=== PATIENT | female | born 1945 | race Caucasian/White ===

== ENCOUNTER 2021-03-04 20:42 | Inpatient (IN) | payer MEDICAID ==
[~2021-03-04] VITALS: Ht 167.6 cm; Wt 72.6 kg
[2021-03-04] MEDS: ENOXAPARIN SODIUM 40 MG/0.4 ML DISP.SYRIN SQ SCH (02:17)
--- NOTE | 2021-03-04 20:50 | NUR ---
PT BIBRA 102 FROM HOME C/O MIDSTERNAL C/P. GIVEN ASPIRIN 324 AND NITRO FANCY STITCHER. PT A/OX3. TOLERATING R/A WELL. CONNECTED PT TO POX AND TELE MONITOR. AMBULATORY. SAFETY MEASURES IN PLACE.
--- NOTE | 2021-03-04 21:00 | NUR ---
BLOOD COLLECTED AND SENT TO LAB
--- NOTE | 2021-03-04 21:12 | NUR ---
COVID SWAB SENT TO LAB
[2021-03-04 21:15] LABS: BASOPHILS % (AUTO) 0.1 % (0.0-2.0); HEMATOCRIT 35 % (33-45); HEMOGLOBIN 11.2 g/dL (11.5-14.8); LYMPHOCYTES # (AUTO) 2.6 K/uL (0.8-4.8); LYMPHOCYTES % (AUTO) 26.8 % (20.0-44.0); MEAN CORPUSCULAR HGB CONC 32 g/dl (31.0-36.0); MEAN CORPUSCULAR VOLUME 67 fL (82-100); MONOCYTES # (AUTO) 0.5 K/uL (0.1-1.30); MONOCYTES % (AUTO) 4.8 % (2.0-12.0); NEUTROPHILS # (AUTO) 6.4 K/uL (1.8-8.9); NEUTROPHILS % (AUTO) 67.3 % (43.0-81.0); PLATELET COUNT (AUTO) 147 K/uL (150-450); RED BLOOD CELL COUNT(AUTO) 5.16 MIL/uL (4.0-5.2); WHITE BLOOD COUNT (AUTO) 9.6 K/uL (4.3-11.0)
--- NOTE | 2021-03-04 21:20 | NUR ---
XRAY AT PT'S BEDSIDE
[2021-03-04 21:22] LABS: CALCIUM, SERUM 8.9 mg/dL (8.5-10.1); CARBON DIOXIDE 26 mmol/L (21-32); CHLORIDE 105 mmol/L (98-107); CREATININE 1.1 mg/dL (0.6-1.3); GLUCOSE 145 mg/dL (74-106); POTASSIUM 4.2 mmol/L (3.5-5.1); SODIUM SERUM 141 mmol/L (136-145); UREA NITROGEN, BLOOD 36 mg/dL (7-18)
[2021-03-04] MEDS ORDERED: ACETAMINOPHEN 325 MG TABLET PO PRN (23:00)
[2021-03-04] MEDS ORDERED: MORPHINE SULFATE INJ 2 MG/ML DISP.SYRIN IV PRN (23:00)
[2021-03-04] MEDS ORDERED: TEMAZEPAM 15 MG CAPSULE PO PRN (23:00)
[2021-03-04] MEDS ORDERED: IV NS 0.9% 1,000 ML IV PRN (23:00)
[2021-03-04] MEDS ORDERED: ALPRAZOLAM 0.25 MG TABLET PO PRN (23:00)
[2021-03-04] MEDS ORDERED: MAG HYDROX/AL HYDROX/SIMETH 30 ML UDC PO PRN (23:00)
[2021-03-04] MEDS ORDERED: MAGNESIUM HYDROXIDE 30 ML UDC PO PRN (23:00)
[2021-03-04] MEDS ORDERED: ONDANSETRON HCL/PF 4 MG/2 ML VIAL IVP PRN (23:00)
[2021-03-04] MEDS ORDERED: HYDROCODONE/APAP 5/325MG TABLET PO PRN (23:00)
[2021-03-04] MEDS ORDERED: Z GUARD REMEDY 2 OZ OINT TP PRN (23:00)
[2021-03-05] VITALS (7 sets, daily range): BP systolic 105–143; BP diastolic 43–65
--- NOTE | 2021-03-05 00:30 | NUR ---
called to 309-1
--- NOTE | 2021-03-05 01:05 | NUR ---
DEVELOPMENT ANALYST ADMITTING NOTES RECEIVED PATIENT VIA STRETCHER. A/OX3 -- CROATIAN SPEAKING ONLY. NO S/S OF APPARENT DISTRESS IN 2LPM OF OXYGEN VIA NC -- TOLERATING AND SATURATING AT 99%. DENIES CHEST PAIN AT THIS TIME. PATIENT AMBULATORY. IV NS RUNNING AT 75ML/HR. ID BAND IN PLACE, BELONGINGS SIGNED BY VINCENT AND Jennifer, TELE MONITOR READING SB/SR - 50'S-60'S. VS FOLLOWS: BP-143/64, P-54 AND WENT UP TO 64, RR-18, T- 96.9, WT- 160.4 LBS. WILL CONTINUE TO MONITOR PATIENT.
--- NOTE | 2021-03-05 01:13 | NUR ---
REPORT GIVEN TO LETA Jiménez RN AND PT TRANSFERRED VIA ACLS PROTOCOL TO 3W 309-1. ALL PT BELONGINGS WITH PT. VSS
--- NOTE | 2021-03-05 01:16 | NUR ---
LEFT VOICEMESSAGE TO JANNA (GRANDDAUGHTER) THAT PT TRANSFERRED TO 309-1
--- NOTE | 2021-03-05 02:18 | NUR ---
LOVENOX NON-ADMIN PATIENT PLT. 145. Addendum: 03/05/21 at 0309 by LETA BADILLO RN disregard this note. Lovenox given for DVT prophylaxis.
--- NOTE | 2021-03-05 02:40 | NUR ---
trying to communicate with patient -- called the [facility] to get some tamazight rough patcher and they could not find any at this time. tried calling granddaughter but not picking up as well and it go straight to voicemail. will try again later.
--- NOTE | 2021-03-05 02:53 | NUR ---
Tried calling Alis (son) which is the person to nofity and no answer. Left a voicemail instead.
[2021-03-05] MEDS: ENOXAPARIN SODIUM 40 MG/0.4 ML DISP.SYRIN SQ SCH (03:06)
--- NOTE | 2021-03-05 06:00 | NUR ---
MARRIAGE AND FAMILY TEACHER NOTE Was able to get a hold of a cooperer via [employer]. Per patient she does not have any chest pain and just wanting an cooperer. Per patient she does not have any advanced directives and wants to be Full code. Per patient she is not up-to-date with her Pneumonia and Flu shot and would like to get it. Per patient she confirmed that she does not have any allergies. Made charge nurse known that patient wants the vaccines and per jeannie Mata, to chart it-- will endorse this to am shift rn. Patient denies any concern at the moment.
--- NOTE | 2021-03-05 06:31 | NUR ---
ASSOCIATE MEDICAL DIRECTOR NOTE PATIENT IN BED WITH EYES CLOSED, EASY TO AROUSE. PATIENT A/OX4. NO S/S OF APPARENT DISTRESS TOLERATING 2LPM OF OXYGEN VIA NC. DENIES PAIN. TELE MONITOR READING SINUS BRADYCARDIA IN THE 50S. IV NS RUNNING AT 75CC/HR. ALL NEEDS ATTENDED. SAFETY KEPT IN PLACE THE WHOLE SHIFT. NO SIGNIFICANT CHANGE SINCE ADMISSION SHIFT. WILL ENDORSE CARE TO MORNING SHIFT RN.
[2021-03-05 06:34] LABS: BASOPHILS % (AUTO) 0.3 % (0.0-2.0); EOSINOPHILS % (AUTO) 1.3 % (0.0-6.0); HEMATOCRIT 33 % (33-45); HEMOGLOBIN 10.5 g/dL (11.5-14.8); LYMPHOCYTES % (AUTO) 22.3 % (20.0-44.0); MEAN CORPUSCULAR HGB CONC 32 g/dl (31.0-36.0); MEAN CORPUSCULAR VOLUME 67 fL (82-100); MONOCYTES # (AUTO) 0.4 K/uL (0.1-1.30); MONOCYTES % (AUTO) 4.3 % (2.0-12.0); NEUTROPHILS # (AUTO) 6.3 K/uL (1.8-8.9); NEUTROPHILS % (AUTO) 71.8 % (43.0-81.0); PLATELET COUNT (AUTO) 143 K/uL (150-450); RED BLOOD CELL COUNT(AUTO) 4.83 MIL/uL (4.0-5.2); WHITE BLOOD COUNT (AUTO) 8.8 K/uL (4.3-11.0)
[2021-03-05 07:02] LABS: CALCIUM, SERUM 8.6 mg/dL (8.5-10.1); CREATININE 0.9 mg/dL (0.6-1.3); MAGNESIUM 2.1 mg/dL (1.8-2.4); PHOSPHORUS 5.1 mg/dL (2.5-4.9); POTASSIUM 4.2 mmol/L (3.5-5.1)
[2021-03-05 07:13] LABS: THYROID STIMULATING HORMONE 44.706 uIU/mL (0.358-3.74)
[2021-03-05] MEDS ORDERED: PNEUMOCOCCAL 23-VAL P-SAC VAC 0.5 ML VIAL SQ ONE (07:30)
--- NOTE | 2021-03-05 07:55 | NUR ---
tele carcass trimmer: cardio consult seen and examined by dr. olmos with orders. orders acknowledged.
--- NOTE | 2021-03-05 08:15 | NUR ---
tele plastic press molder: notes last (son) notified and made aware re: ct angio procedure today. son translated to her mother and given consent. pt and son verbalized understanding. Addendum: 03/05/21 at 1345 by PAYAL QUINTERO BICYCLE FITTER asked son if pt had pneumococcal vaccination within 5 years and says he is not sure.
--- NOTE | 2021-03-05 08:20 | NUR ---
tele home health care case manager: md visit seen and examined by dr. donnelly with new orders. orders acknowledged. iv fluids stopped. will continue to monitor.
[2021-03-05] MEDS ORDERED: IV NS 0.9% 250 ML IV ONE (08:33)
[2021-03-05] MEDS ORDERED: CT SWABBABLE VALVE TRANS SET 1 EA INFUS.SET MC ONE (08:33)
[2021-03-05] MEDS ORDERED: NITROGLYCERIN 0.4 MG/TAB BOTTLE ONE (08:33)
[2021-03-05] MEDS ORDERED: IOHEXOL-350 100 ML VIAL IV ONE (08:33)
[2021-03-05] MEDS ORDERED: METOPROLOL TARTRATE INJ 5 MG/5 ML AMPUL ONE (08:33)
[2021-03-05] MEDS ORDERED: AMIO200T5 PO (08:55)
[2021-03-05] MEDS ORDERED: CLOP75TA15 PO (08:55)
[2021-03-05] MEDS ORDERED: ATOR40TA PO (08:55)
[2021-03-05] MEDS ORDERED: FURO-144 PO (09:00)
[2021-03-05] MEDS ORDERED: LEVO25TA7 PO (09:00)
[2021-03-05] MEDS ORDERED: NITROGLYCERIN 0.4 MG/TAB BOTTLE SL ONE (09:00)
[2021-03-05] MEDS: AMIODARONE HCL 200 MG TABLET PO SCH (09:00)
[2021-03-05] MEDS ORDERED: METOPROLOL TARTRATE INJ 5 MG/5 ML AMPUL IVP PRN (09:00)
--- NOTE | 2021-03-05 09:09 | NUR ---
CTA PROCEDURE WELL TOLERATED BY THE PT. V/S STABLE, KEPT RESTED AND COMFORTABLE. REPORT GIVEN TO GEORGE MOE FOR NIKITA.
--- NOTE | 2021-03-05 09:15 | NUR ---
tele fruit worker: notes pt back from ct angio at this time. instructed to call for assistance.
[2021-03-05] MEDS: ASPIRIN 81 MG TAB.CHEW PO SCH (09:30)
[2021-03-05] MEDS: FLUTICASONE/VILANTEROL 1 EACH BLST.W.DEV IH SCH (09:30)
[2021-03-05] MEDS: CLOPIDOGREL BISULFATE 75 MG TABLET PO SCH (09:30)
[2021-03-05] MEDS: PANTOPRAZOLE 40 MG TABLET.DR PO SCH (09:30)
[2021-03-05] MEDS: ALBUTEROL FS 2.5 MG/0.5 ML VIAL.NEB NEB SCH ×5 (09:34→23:57)
--- NOTE | 2021-03-05 11:00 | NUR ---
tele network services project manager: notes ct angio resulted. dr. donnelly notified and says he is aware and has spoken with dr. olmos (air conditioning engineer).
--- NOTE | 2021-03-05 14:17 | NUR ---
tele 911 telecommunicator: notes heydi (granddaughter) called and wants to talk to the doctor for updates. dr. donnelly notified and given pt's granddaughter's number.
--- NOTE | 2021-03-05 14:20 | NUR ---
tele pipe turner: notes dr. donnelly says that he called both son and granddaughter and no one picked up. per dr. donnelly, pt for d'c planning tomorrow.
--- NOTE | 2021-03-05 15:20 | NUR ---
tele chemical recovery operator: notes granddaughter called and informed me that she missed the doctor's call. informed her that labs still pending and pt for d'c planning tomorrow. transfer call to pt to tell her in kinyarwanda.
[2021-03-05] MEDS: APIXABAN 5 MG TABLET PO SCH ×2 (15:49→21:20)
[2021-03-05 16:53] LABS: FERRITIN 0 ng/mL (8-388)
--- NOTE | 2021-03-05 17:00 | NUR ---
tele lime vat tender: notes dinner served. hob elevated. instructed to call for assistance. will continue to monitor.
--- NOTE | 2021-03-05 17:23 | NUR ---
tele chart changer: notes urine collected via clean catch. called lab to picker tender specimen.
--- NOTE | 2021-03-05 19:24 | NUR ---
tele exercise instruct: notes pt sounds asleep. report given to [facility]) for continuity of care.
--- NOTE | 2021-03-05 20:00 | NUR ---
Patient is A&Ox4. VSS. SR on the monitor at this time. Patient reports that she feels well, no chest pain or SOB and she feels like the breathing treatments are helping her. Patient is Greenlandic speaking only so translation navid as needed. but, certified adaptive physical education specialist or family member for consents, decisions, coordinating clinical care, etc.
--- NOTE | 2021-03-05 21:45 | NUR ---
Able to get ahold of family member to double check if patient would like flu and PNA vaccine. Per family pt does not want or need any vaccines and she refuses. Family able to confirm through translation that patient feels good and "back to normal like she can go back home." Pt still denies CP or SOB. States that she only feels a little anxiety from having all these tests and would like a sleeping pill to get a good nights rest. Will admin and continue to monitor.
[2021-03-05] MEDS ORDERED: ATORVASTATIN 40 MG TABLET PO SCH (22:00)
[2021-03-06] VITALS: BP 121/55
[2021-03-06] MEDS: ALBUTEROL FS 2.5 MG/0.5 ML VIAL.NEB NEB SCH ×4 (03:39→15:07)
[2021-03-06 04:00] VITALS: BP 145/55
--- NOTE | 2021-03-06 06:12 | NUR ---
CHILD AND ADOLESCENT THERAPIST CLOSING NOTES Patient has been A&Ox4. VSS. Tolerating breathing treatments well. SB/SR on monitor 55-75bpm. No signs of distress. Patient denies pain or SOB. No overnight events. All needs attended to by staff.
[2021-03-06 07:21] LABS: BILIRUBIN,URINE NEGATIVE (NEGATIVE); COLOR,URINE YELLOW (YELLOW); LEUKOCYTE ESTERASE ,URINE NEGATIVE (NEGATIVE); NITRITE, URINE NEGATIVE (NEGATIVE); PH,URINE 5.5 (5.0-8.0); PROTEIN,URINE NEGATIVE (NEGATIVE); UGLUCOSE NEGATIVE (NEGATIVE); UROBILINOGEN,URINE 0.2 EU/dL (0.2)
--- NOTE | 2021-03-06 07:28 | NUR ---
TELE/RN OPENING NOTES RECEIVED PATIENT ON BED SLEEPING EASILY AWAKEN BY NAME AND LIGHT TOUCH. PATIENT IS ON 2L OXYGEN VIA NASAL CANNULA AT THIS TIME. PATIENT IS ON AND OFF 2L OXYGEN PER NIGHT RN SATURATING WELL. PATIENT IN NO APPARENT RESPIRATORY DISTRESS NOTED. NO SIGN AND SYMPTOM OF PAIN NOTED AT THIS TIME. TELE MONITOR READING SINUS JAIMEE 49 BPM. WILL CONTINUE TO MONITOR.
[2021-03-06] MEDS: PANTOPRAZOLE 40 MG TABLET.DR PO SCH (07:38)
[2021-03-06 08:00] VITALS: BP 101/50
[2021-03-06] MEDS: FLUTICASONE/VILANTEROL 1 EACH BLST.W.DEV IH SCH (08:39)
[2021-03-06] MEDS: CLOPIDOGREL BISULFATE 75 MG TABLET PO SCH (08:39)
[2021-03-06] MEDS: ASPIRIN 81 MG TAB.CHEW PO SCH (08:39)
[2021-03-06] MEDS: APIXABAN 5 MG TABLET PO SCH (08:44)
[2021-03-06] MEDS: AMIODARONE HCL 200 MG TABLET PO SCH (09:00)
[2021-03-06] MEDS ORDERED: LEVOTHYROXINE INJ 100 MCG VIAL IV STA (09:31)
[2021-03-06] MEDS ORDERED: CLOP75TA15 PO (09:44)
[2021-03-06] MEDS ORDERED: PANT40TA2 PO (09:44)
[2021-03-06] MEDS ORDERED: AMIO200T5 PO (09:44)
[2021-03-06] MEDS ORDERED: APIX5TAB PO (09:44)
[2021-03-06] MEDS ORDERED: ASPI-1169 PO (09:44)
[2021-03-06] MEDS ORDERED: LEVO25TA7 PO (09:44)
[2021-03-06] MEDS ORDERED: FURO-144 PO (09:44)
[2021-03-06] MEDS ORDERED: ATOR40TA PO (09:44)
[2021-03-06] MEDS ORDERED: POTA20TA83 PO (09:44)
[2021-03-06 12:00] VITALS: BP 140/57
[2021-03-06 16:00] VITALS: BP 119/60
--- NOTE | 2021-03-06 16:41 | NUR ---
RN NOTES PATIENT IS ALERT AND ORIENTED X3. PATIENT IS ON ROOM AIR. PATIENT IN NO APPARENT RESPIRATORY DISTRESS NOTED. NO COMPLAINED OF PAIN NOTED. SEEN AND EXAMINED BY MD WITH ORDERS MADE AND CARRIED OUT. ALL DUE MEDICATIONS WAS GIVEN. DISCHARGED INSTRUCTIONS WAS GIVEN AND DAUGHTER VERBALIZED UNDERSTANDING. PATIENT LEFT THE HOSPITAL IN MEDICALLY STABLE CONDITION, CONSTRUCTION PROJECT ASSISTANT BY DAUGHTER VIA PRIVATE CAR.
[2021-03-06] MEDS ORDERED: APIXABAN 5 MG TABLET PO SCH (17:00)
[2021-03-06 20:37] LABS: CREATININE, URINE 91.6 MG/DL (30.0-125.0)
[2021-03-07] MEDS ORDERED: LEVOTHYROXINE SODIUM 50 MCG TABLET PO SCH (07:30)
== END 2021-03-06 16:45 | disposition home or self-care (01) | DRG 198 ==
LOC: ER 20:42 → TELE 03-05 00:47
PROVIDERS: ADMIT Nurse Practitioner Acute Care; ATTEND Nurse Practitioner Acute Care
DX: R07.9 Chest pain, unspecified (principal); I25.10 Atherosclerotic heart disease of native coronary artery without angina pectoris; Z95.5 Presence of coronary angioplasty implant and graft; N17.9 Acute kidney failure, unspecified; I69.351 Hemiplegia and hemiparesis following cerebral infarction affecting right dominant side; E78.5 Hyperlipidemia, unspecified; I10 Essential (primary) hypertension; I48.91 Unspecified atrial fibrillation; E03.9 Hypothyroidism, unspecified; D50.9 Iron deficiency anemia, unspecified; E66.9 Obesity, unspecified; Z68.27 Body mass index [BMI] 27.0-27.9, adult; Z20.822 Contact with and (suspected) exposure to COVID-19
CPT/HCPCS: 36415; 71045-TC; 75574; 80048-TC; 80061-TC; 82533; 82570-TC; 82728-TC; 83540-TC; 83735-TC; 83880; 84100-TC; 84300-TC; 84439-TC; 84443-TC; 84481; 84484-TC; 85025-TC; 87081-TC; 93307-TC; 94799-TC; 97116-TC; 97530-TC; C9803; G0378; J1650; J3490; J7050; Q9967

== ENCOUNTER 2021-05-03 23:23 | Inpatient (IN) | payer MEDICAID ==
[~2021-05-03] VITALS: Ht 167.6 cm; Wt 74.4 kg
[~2021-05-03 23:23] MED LIST: AMIO200T5 PO; APIX5TAB PO; ASPI-1169 PO; ATOR40TA PO; CLOP75TA15 PO; FURO-144 PO; LEVO25TA7 PO; PANT40TA2 PO; POTA20TA83 PO
--- NOTE | 2021-05-03 23:48 | NUR ---
PT BIBGRANDSON C/O SOB X FEW HOURS. PT AAOX4 BREATHING EVENLY AND UNLABORED, SATURATING 99% RA. PT ATTACHED TO MONITOR AND POX. LEFT HAND 20G INITIATED AND BLOOD SENT TO LAB. AT BEDSIDE. PT GIVEN BLANKET AND CALL LIGHT WITHIN REACH
[2021-05-04] MEDS ORDERED: FUROSEMIDE 40 MG/4 ML VIAL IV ONE
[2021-05-04] MEDS ORDERED: FUROSEMIDE 40 MG/4 ML VIAL ONE
--- NOTE | 2021-05-04 00:36 | NUR ---
XRAY AT BEDSIDE
[2021-05-04 00:38] LABS: BASOPHILS % (AUTO) 0.7 % (0.0-2.0); HEMATOCRIT 36 % (33-45); HEMOGLOBIN 11.3 g/dL (11.5-14.8); LYMPHOCYTES # (AUTO) 2.6 K/uL (0.8-4.8); LYMPHOCYTES % (AUTO) 37.5 % (20.0-44.0); MEAN CORPUSCULAR HGB CONC 32 g/dl (31.0-36.0); MEAN CORPUSCULAR VOLUME 67 fL (82-100); MONOCYTES # (AUTO) 0.4 K/uL (0.1-1.30); MONOCYTES % (AUTO) 6.4 % (2.0-12.0); NEUTROPHILS # (AUTO) 3.7 K/uL (1.8-8.9); NEUTROPHILS % (AUTO) 53.4 % (43.0-81.0); PLATELET COUNT (AUTO) 169 K/uL (150-450); RED BLOOD CELL COUNT(AUTO) 5.29 MIL/uL (4.0-5.2); WHITE BLOOD COUNT (AUTO) 6.9 K/uL (4.3-11.0)
--- NOTE | 2021-05-04 01:17 | NUR ---
CALLED [facility] TO HAVE IMAGES READ
[2021-05-04 01:18] LABS: CALCIUM, SERUM 9.4 mg/dL (8.5-10.1); CARBON DIOXIDE 26 mmol/L (21-32); CHLORIDE 105 mmol/L (98-107); CREATININE 0.9 mg/dL (0.6-1.3); GLUCOSE 118 mg/dL (74-106); POTASSIUM 4.5 mmol/L (3.5-5.1); SODIUM SERUM 141 mmol/L (136-145); UREA NITROGEN, BLOOD 18 mg/dL (7-18)
[2021-05-04 01:40] LABS: ALANINE AMINOTRANSFERASE 25 U/L (12-78); ALBUMIN 4.3 g/dL (3.4-5.0); ALKALINE PHOSPHATASE 34 U/L (46-116); ASPARTATE AMINOTRANSFERASE 22 U/L (15-37); BILIRUBIN,DIRECT 0.1 mg/dL (0.0-0.2); BILIRUBIN,TOTAL 0.4 mg/dL (0.2-1.0); TOTAL PROTEIN, SERUM 7.6 g/dL (6.4-8.2)
--- NOTE | 2021-05-04 02:36 | NUR ---
MOVE SAMMIE SUBMITTED.
--- NOTE | 2021-05-04 03:01 | NUR ---
GRANDSON, STEVIE [phone] SON,DEAN,
--- NOTE | 2021-05-04 03:27 | NUR ---
SPEAKING WITH DR PINTO
--- NOTE | 2021-05-04 03:34 | NUR ---
ROOM ASSIGNEMENT: 314-1 TELE
--- NOTE | 2021-05-04 03:40 | NUR ---
MRSA SWAB COLLECTED AND SENT TO LAB. PATIENT'S BELONGINGS LIST DONE.
--- NOTE | 2021-05-04 03:45 | NUR ---
GAVE REPORT TO ANN PALACIOS FOR NIKITA
--- NOTE | 2021-05-04 04:00 | NUR ---
EXECUTIVE ASSISTANT ADMITTING NOTE PT TRANSPORTED BY JERRY TO UNIT FROM ED AT THIS TIME. RECEIVED REPORT FROM ANN SRINIVASAN @ ED, A/O X4. PT ABLE TO COMMUNICATE NEEDS. NO SOB NOTED, NO C/O PAIN AT THIS TIME, NO S/S OF ANY APPARENT DISTRESS NOTED. RESPIRATIONS EVEN AND UNLABORED, ACTIVE BOWEL SOUNDS AUSCULTATED THROUGHOUT, ABDOMEN IS NON TENDER NA DNON DISTENDED. SKIN IS INTACT, WARM TO TOUCH. CAPILLARY REFILL <3 SECONDS, PULSES PRESENT BILATERALLY, GOOD CIRCULATION NOTED. IV ACCESS NOTED IN LEFT WRIST G #20, INTACT, PATENT AN DFLUSHING WELL. PTS BELONGINGS ACCOUNTED FOR AND KEPT TAT PT'S BEDSIDE PER PT REQUEST. ASPIRATION AN DSAFETY PRECAUTIONS IN PLACE AND MAINTAINED AT ALL TIMES. BED IN LOWEST LOCKED POSITION, SIDE RAILS UP X2, TABLE AN DCALL LIGHT WITHIN REACH. WILL CONTINU WITH PLAN OF CARE.
[2021-05-04 05:00] VITALS: BP 111/47
[2021-05-04] MEDS ORDERED: ZOLPIDEM TARTRATE 5 MG TABLET PO PRN (05:00)
[2021-05-04] MEDS ORDERED: MAG HYDROX/AL HYDROX/SIMETH 30 ML UDC PO PRN (05:00)
[2021-05-04] MEDS ORDERED: ONDANSETRON HCL/PF 4 MG/2 ML VIAL IVP PRN (05:00)
[2021-05-04] MEDS ORDERED: Z GUARD REMEDY 2 OZ OINT TP PRN (05:00)
[2021-05-04] MEDS ORDERED: HYDROCODONE/APAP 5/325MG TABLET PO PRN (05:00)
[2021-05-04] MEDS ORDERED: ACETAMINOPHEN 325 MG TABLET PO PRN (05:00)
[2021-05-04] MEDS ORDERED: MAGNESIUM HYDROXIDE 30 ML UDC PO PRN (05:00)
[2021-05-04] MEDS: FUROSEMIDE 40 MG/4 ML VIAL IV SCH ×3 (05:35→16:15)
--- NOTE | 2021-05-04 06:30 | NUR ---
COMMISSARY ASSISTANT CLOSING NOTE PT REMAINED STABLE THROUGHOUT SHIFT. WILL ENDORSE TO ONCOMING NURSE FOR NIKITA.
--- NOTE | 2021-05-04 07:15 | NUR ---
DISPENSARY CLERK OPENING NOTE RECEIVED PATIENT IN BED, JAPANESE AND SAO TOMEAN SPEAKING, A/OX 4, PATIENT IS ON ROOM AIR, DENIES SOB, IN NO APPARENT DISTRESS. PATIENT IS WITH TELE MONITOR AND READING SHOWS SINUSBRADY NOTED. IV ACCESS LEFT WRIST # 20 . INTACT AND PATENT. SAFETY MEASURES PROVIDED. LOW BED, BRAKES LOCKED, SIDE RAILS UP X 2. CALL LIGHT WITHIN THE REACH. WILL CONTINUE TO MONITOR.
[2021-05-04] MEDS: LEVOTHYROXINE SODIUM 25 MCG TABLET PO SCH (07:30)
[2021-05-04] MEDS ORDERED: PANTOPRAZOLE 40 MG TABLET.DR PO SCH (07:30)
[2021-05-04 08:00] VITALS: BP 97/56
[2021-05-04] MEDS: APIXABAN 5 MG TABLET PO SCH ×2 (08:44→16:15)
[2021-05-04] MEDS: AMIODARONE HCL 200 MG TABLET PO SCH (08:45)
[2021-05-04] MEDS: PANTOPRAZOLE 40 MG TABLET.DR PO SCH (08:45)
[2021-05-04] MEDS: CLOPIDOGREL BISULFATE 75 MG TABLET PO SCH (08:46)
[2021-05-04] MEDS: ASPIRIN 81 MG TAB.CHEW PO SCH (08:46)
[2021-05-04] MEDS ORDERED: ATORVASTATIN 10 MG TABLET PO SCH (11:30)
[2021-05-04 11:58] LABS: LYMPHOCYTES # (AUTO) 1.9 K/uL (0.8-4.8); MONOCYTES # (AUTO) 0.5 K/uL (0.1-1.30); NEUTROPHILS # (AUTO) 3.4 K/uL (1.8-8.9)
[2021-05-04 12:02] LABS: BASOPHILS % (AUTO) 0.5 % (0.0-2.0); EOSINOPHILS % (AUTO) 1.4 % (0.0-6.0); HEMATOCRIT 36 % (33-45); HEMOGLOBIN 11.4 g/dL (11.5-14.8); LYMPHOCYTES % (AUTO) 32.2 % (20.0-44.0); MEAN CORPUSCULAR HGB CONC 32 g/dl (31.0-36.0); MEAN CORPUSCULAR VOLUME 67 fL (82-100); MONOCYTES % (AUTO) 8.7 % (2.0-12.0); NEUTROPHILS % (AUTO) 57.2 % (43.0-81.0); PLATELET COUNT (AUTO) 176 K/uL (150-450); RED BLOOD CELL COUNT(AUTO) 5.33 MIL/uL (4.0-5.2)
[2021-05-04 12:17] LABS: ALBUMIN 4.3 g/dL (3.4-5.0); BILIRUBIN,TOTAL 0.6 mg/dL (0.2-1.0); CALCIUM, SERUM 9.4 mg/dL (8.5-10.1); CREATININE 0.9 mg/dL (0.6-1.3); MAGNESIUM 2.3 mg/dL (1.8-2.4); PHOSPHORUS 5.6 mg/dL (2.5-4.9); POTASSIUM 3.9 mmol/L (3.5-5.1); TOTAL PROTEIN, SERUM 7.4 g/dL (6.4-8.2)
[2021-05-04 12:26] LABS: THYROID STIMULATING HORMONE 42.341 uIU/mL (0.358-3.74)
[2021-05-04 16:00] VITALS: BP_SYST 146; BP_SYST 96; BP_DIAS 55; BP_DIAS 77
--- NOTE | 2021-05-04 18:24 | NUR ---
URBAN GARDENING SPECIALIST CLOSING NOTE PATIENT RESTING IN BED, SAMMARINESE AND GUYANESE SPEAKING, A/OX 4, PATIENT IS ON ROOM AIR, DENIES SOB, NO C/C PAIN AND DISTRESS NOTED. PATIENT IS WITH TELE MONITOR AND READING SHOWS SINUSBRADY NOTED. IV ACCESS LEFT WRIST # 20 . INTACT AND PATENT. SAFETY MEASURES PROVIDED. LOW BED, BRAKES LOCKED, SIDE RAILS UP X 2. CALL LIGHT WITHIN REACH. WILL ENDORSE TO PURCHASING ASSISTANT NURSE.
--- NOTE | 2021-05-04 19:30 | NUR ---
TELE/RN OPENING NOTE RECEIVED PATIENT SLEEPING IN BED. ALERT AND ORIENTED X 4. ABLE TO MAKE NEEDS KNOWN. DENIES PAIN AT THIS TIME. CONTINUES ON ROOM AIR WITH NO S/SX OF RESPIRATORY DISTRESS NOTED. IV ACCESS TO LEFT WRIST #20G INTACT, PATENT AND SALINE LOCKED. CONTINUES ON TELE MONITOR WITH CURRENT READING SINUS JAIMEE HR 59. CONTINUES ON CARDIAC DIET AND STRICT I&O'S. CALL LIGHT WITHIN REACH. ASPIRATION, FALL AND SAFETY PRECAUTIONS MAINTAINED. WILL CONTINUE TO MONITOR.
[2021-05-04 19:58] VITALS: BP 103/49
[2021-05-04] MEDS ORDERED: ATORVASTATIN 40 MG TABLET PO SCH (22:00)
[2021-05-05 04:31] VITALS: BP 102/51
[2021-05-05] MEDS: LEVOTHYROXINE SODIUM 25 MCG TABLET PO SCH (06:30)
--- NOTE | 2021-05-05 06:40 | NUR ---
TELE/RN CLOSING NOTE PATIENT CURRENTLY SLEEPING IN BED. ALERT AND ORIENTED X 4. ABLE TO MAKE NEEDS KNOWN. DENIES PAIN AT THIS TIME. CONTINUES ON ROOM AIR WITH NO S/SX OF RESPIRATORY DISTRESS NOTED. IV ACCESS TO LEFT WRIST #20G INTACT, PATENT AND SALINE LOCKED. CONTINUES ON TELE MONITOR WITH CURRENT READING SINUS JAIMEE WITH SOME PVC'S HR 53. CONTINUES ON CARDIAC DIET AND STRICT I&O'S. CALL LIGHT WITHIN REACH. ASPIRATION, FALL AND SAFETY PRECAUTIONS MAINTAINED. WILL ENDORSE PLAN OF CARE TO ONCOMING SHIFT.
--- NOTE | 2021-05-05 07:30 | NUR ---
SHOP DIRECTOR OPENING NOTES RECEIVED PATIENT IN BED, AWAKE, ALERT AND ORIENTED X 4. ABLE TO MAKE NEEDS KNOWN. DENIES PAIN AT THIS TIME. CONTINUES ON ROOM AIR WITH NO S/SX OF RESPIRATORY DISTRESS NOTED. IV ACCESS TO LEFT WRIST #20G INTACT, PATENT AND SALINE LOCKED. ON TELE MONITOR WITH CURRENT READING SINUS JAIMEE HR 49. CONTINUES ON CARDIAC DIET AND STRICT I&O'S. SAFETY PRECAUTIONS IN PLACE: CALL LIGHT WITHIN REACH, SIDE RAILS UP X 2, BED ON LOWEST LOCKED POSITION. WILL CONTINUE TO MONITOR ACCORDINGLY.
[2021-05-05] MEDS: PANTOPRAZOLE 40 MG TABLET.DR PO SCH (07:37)
[2021-05-05 08:00] VITALS: BP 117/52
[2021-05-05 08:18] LABS: BASOPHILS % (AUTO) 0.4 % (0.0-2.0); EOSINOPHILS % (AUTO) 1.6 % (0.0-6.0); HEMATOCRIT 33 % (33-45); HEMOGLOBIN 10.9 g/dL (11.5-14.8); LYMPHOCYTES # (AUTO) 1.8 K/uL (0.8-4.8); LYMPHOCYTES % (AUTO) 30.1 % (20.0-44.0); MEAN CORPUSCULAR HGB CONC 33 g/dl (31.0-36.0); MEAN CORPUSCULAR VOLUME 66 fL (82-100); MONOCYTES # (AUTO) 0.3 K/uL (0.1-1.30); MONOCYTES % (AUTO) 5.7 % (2.0-12.0); NEUTROPHILS # (AUTO) 3.7 K/uL (1.8-8.9); NEUTROPHILS % (AUTO) 62.2 % (43.0-81.0); PLATELET COUNT (AUTO) 158 K/uL (150-450); RED BLOOD CELL COUNT(AUTO) 5.08 MIL/uL (4.0-5.2); WHITE BLOOD COUNT (AUTO) 5.9 K/uL (4.3-11.0)
[2021-05-05] MEDS: ASPIRIN 81 MG TAB.CHEW PO SCH (08:19)
[2021-05-05] MEDS: CLOPIDOGREL BISULFATE 75 MG TABLET PO SCH (08:19)
[2021-05-05] MEDS: APIXABAN 5 MG TABLET PO SCH (08:19)
[2021-05-05] MEDS: AMIODARONE HCL 200 MG TABLET PO SCH (08:20)
[2021-05-05 08:35] LABS: CALCIUM, SERUM 9.2 mg/dL (8.5-10.1); MAGNESIUM 2.3 mg/dL (1.8-2.4); PHOSPHORUS 5.5 mg/dL (2.5-4.9); POTASSIUM 3.7 mmol/L (3.5-5.1)
[2021-05-05 08:58] LABS: THYROID STIMULATING HORMONE 30.258 uIU/mL (0.358-3.74)
[2021-05-05] MEDS ORDERED: FUROSEMIDE 40 MG TABLET PO SCH (09:00)
[2021-05-05] MEDS ORDERED: POTASSIUM CHLORIDE 20 MEQ TAB.PRT.SR PO SCH (09:00)
[2021-05-05 12:00] VITALS: BP 106/50
[2021-05-05] MEDS ORDERED: FURO40TA5 PO (12:15)
[2021-05-05] MEDS ORDERED: POTA20TA83 PO (12:15)
--- NOTE | 2021-05-05 16:15 | NUR ---
HVAC OPERATIONS TECHNICIAN NOTES DISCHARGED PATIENT IN STABLE CONDITION. V/S WITHIN NORMAL LIMITS. DISCHARGE INSTRUCTIONS AND FOLLOW UP GIVEN TO PATIENT'S GRAND SON. VERBALIZED UNDERSTANDING. ALL BELONGINGS SIGNED AND ACCOUNTED FOR. IV ACCESS REMOVED. COVERED WITH GAUZED, NO BLEEDING NOTED. ARMBAND REMOVED. WHEELED TO LOBBY SAFELY WITH GRAND SON. CHARGE NURSE AND MD AWARE OF DISCHARGE.
== END 2021-05-05 16:15 | disposition home or self-care (01) | DRG 194 ==
LOC: ER 23:26 → TELE 05-04 03:42
PROVIDERS: ADMIT Registered Nurse; ATTEND Registered Nurse
DX: I11.0 Hypertensive heart disease with heart failure (principal); J96.01 Acute respiratory failure with hypoxia; I75.89 Atheroembolism of other site; I50.9 Heart failure, unspecified; E03.9 Hypothyroidism, unspecified; I48.91 Unspecified atrial fibrillation; E78.00 Pure hypercholesterolemia, unspecified; I25.10 Atherosclerotic heart disease of native coronary artery without angina pectoris; E78.5 Hyperlipidemia, unspecified; I69.351 Hemiplegia and hemiparesis following cerebral infarction affecting right dominant side; I70.0 Atherosclerosis of aorta; Z79.01 Long term (current) use of anticoagulants; Z79.82 Long term (current) use of aspirin; Z79.02 Long term (current) use of antithrombotics/antiplatelets; Z79.899 Other long term (current) drug therapy; Z95.5 Presence of coronary angioplasty implant and graft; Z87.891 Personal history of nicotine dependence; Z79.890 Hormone replacement therapy; Z91.14 Patient's other noncompliance with medication regimen
CPT/HCPCS: 36415; 70450-TC; 71045-TC; 80048-TC; 80053-TC; 80076-TC; 83735-TC; 83880; 84100-TC; 84439-TC; 84443-TC; 84484-TC; 85025-TC; 85730-TC; 87081-TC; C9803; G0378; J1940